=== PATIENT | female | born 1950 | race Hispanic/Latino ===

== ENCOUNTER 2018-09-01 08:01 | Observation (INO) | payer MEDICARE ==
[~2018-09-01] VITALS: Ht 14.5 cm; Wt 104.8 kg
[2018-09-01 08:18] LABS: BASOPHILS % (AUTO) 1.3 % (0.0-5.0); EOSINOPHILS % (AUTO) 3.4 % (0.0-8.0); HEMATOCRIT 43.2 % (36-48); LYMPHOCYTES % (AUTO) 33.1 % (21.0-51.0); MEAN CORPUSCULAR HEMOGLOBIN 30.1 pg (27.0-33.0); MEAN CORPUSCULAR HGB CONC 33.6 g/dL (32.0-36.0); MEAN CORPUSCULAR VOLUME 89.5 fL (79-99); MONOCYTES % (AUTO) 7.5 % (3.0-13.0); NEUTROPHILS % (AUTO) 54.7 % (40.0-77.0); PLATELET COUNT (AUTO) 210 K/uL (130-400); RED BLOOD CELL COUNT(AUTO) 4.83 MIL/uL (4.00-5.50); RED CELL DISTRIBUTION WIDTH 13.9 % (11.0-15.5)
[2018-09-01] MEDS ORDERED: ASPIRIN 325 MG TABLET ONE (08:20)
[2018-09-01] MEDS ORDERED: NITROGLYCERIN 1GM/1 INCH PACKET TD ONE (08:20)
[2018-09-01 08:29] LABS: CREATININE 0.8 mg/dL (0.5-1.5)
[2018-09-01 08:35] LABS: ALBUMIN 4.2 g/dL (3.5-5.0); BILIRUBIN,TOTAL 0.6 mg/dL (0.2-1.0); TOTAL PROTEIN, SERUM 7.7 g/dL (6.0-8.3)
[2018-09-01 08:36] LABS: INR 0.92 (0.85-1.15); PARTIAL THROMBOPLASTIN TIME 30.7 SEC (26.3-35.5); PROTHROMBIN TIME 9.7 SEC (9.6-11.6)
[2018-09-01] MEDS ORDERED: ACETAMINOPHEN EXTRA STRENGTH 500 MG TABLET ONE (09:10)
[2018-09-01] MEDS: SODIUM CHLORIDE 0.9% 1000ML 1,000 ML IV SCH ×2 (09:25→21:34)
[2018-09-01] MEDS ORDERED: ZOLPIDEM TARTRATE 5 MG TAB PO PRN (09:30)
[2018-09-01] MEDS ORDERED: MORPHINE SULFATE 2 MG/ML 1ML SYG IV PRN (09:30)
[2018-09-01] MEDS ORDERED: ONDANSETRON HCL 4 MG/2 ML VIAL IV PRN (09:30)
[2018-09-01] MEDS ORDERED: ACETAMINOPHEN 325 MG TAB PO PRN ×2 (09:30)
[2018-09-01] MEDS ORDERED: HYDRALAZINE HCL 20 MG/ML VIAL IV PRN (09:30)
[2018-09-01] MEDS ORDERED: SODIUM CHLORIDE 0.9% 1000ML 1,000 ML IV ONE (10:01)
[2018-09-01 10:10] LABS: HEMOGLOBIN A1C 5.4 % (4.0-6.0)
[2018-09-01 10:58] LABS: CREATINE KINASE, TOTAL 113 U/L (21-232)
[2018-09-01 11:16] LABS: MYOGLOBIN 43 ng/mL (10-92)
[2018-09-01 12:10] VITALS: BP 144/83
[2018-09-01 16:00] VITALS: BP 130/54
[2018-09-01 16:34] LABS: CREATINE KINASE, TOTAL 86 U/L (21-232); MYOGLOBIN 40 ng/mL (10-92); TROPONIN I < 0.04 ng/mL (0.00-0.06)
[2018-09-01] MEDS: NITROGLYCERIN 1GM/1 INCH PACKET TD SCH (17:25)
[2018-09-01] MEDS ORDERED: BRIM5DRO OP (19:23)
[2018-09-01] MEDS ORDERED: LEVO125T11 PO (19:23)
[2018-09-01] MEDS ORDERED: TRAV2.5D OD (19:23)
[2018-09-01] MEDS ORDERED: ASPI-555 PO (19:23)
[2018-09-01 20:00] VITALS: BP 105/54
[2018-09-01] MEDS: METOPROLOL TARTRATE 25 MG TAB PO SCH (21:00)
[2018-09-01] MEDS: FAMOTIDINE/PF 20 MG/2 ML VIAL IV SCH (21:20)
[2018-09-02] VITALS: BP 110/71
[2018-09-02 00:50] LABS: CREATINE KINASE, TOTAL 79 U/L (21-232); MYOGLOBIN 46 ng/mL (10-92); TROPONIN I < 0.04 ng/mL (0.00-0.06)
[2018-09-02] MEDS: NITROGLYCERIN 1GM/1 INCH PACKET TD SCH ×3 (01:15→15:04)
[2018-09-02 04:00] VITALS: BP 110/59
[2018-09-02] MEDS: SODIUM CHLORIDE 0.9% 1000ML 1,000 ML IV SCH (06:05)
[2018-09-02 07:00] VITALS: BP 121/66
[2018-09-02 08:12] LABS: CREATINE KINASE, TOTAL 79 U/L (21-232); MYOGLOBIN 61 ng/mL (10-92); TROPONIN I < 0.04 ng/mL (0.00-0.06)
[2018-09-02] MEDS: FAMOTIDINE/PF 20 MG/2 ML VIAL IV SCH ×2 (08:47→20:45)
[2018-09-02] MEDS: ENOXAPARIN SODIUM 40 MG/0.4 ML SYRINGE SQ SCH (08:48)
[2018-09-02] MEDS: ASPIRIN 325 MG TABLET PO SCH (08:48)
[2018-09-02] MEDS: METOPROLOL TARTRATE 25 MG TAB PO SCH ×2 (08:48→21:00)
[2018-09-02 11:00] VITALS: BP 109/63
[2018-09-02 20:00] VITALS: BP 122/64
[2018-09-02 23:57] VITALS: BP 118/69
[2018-09-03] MEDS: NITROGLYCERIN 1GM/1 INCH PACKET TD SCH ×2 (01:30→08:13)
[2018-09-03 04:00] VITALS: BP 131/59
[2018-09-03 07:00] VITALS: BP 144/73
[2018-09-03] MEDS: ENOXAPARIN SODIUM 40 MG/0.4 ML SYRINGE SQ SCH (08:56)
[2018-09-03] MEDS: FAMOTIDINE/PF 20 MG/2 ML VIAL IV SCH (08:56)
[2018-09-03] MEDS: ASPIRIN 325 MG TABLET PO SCH (08:56)
== END 2018-09-03 11:30 | disposition home or self-care (01) ==
LOC: EDH 08:01 → EDHIP 09:25 → 3DH 11:51
PROVIDERS: ADMIT Internal Medicine; ATTEND Internal Medicine
DX: I45.10 Unspecified right bundle-branch block (principal); R07.89 Other chest pain; E03.9 Hypothyroidism, unspecified; E78.5 Hyperlipidemia, unspecified; E66.9 Obesity, unspecified; I10 Essential (primary) hypertension; F10.10 Alcohol abuse, uncomplicated; Z87.891 Personal history of nicotine dependence; Z82.49 Family history of ischemic heart disease and other diseases of the circulatory system; Z90.710 Acquired absence of both cervix and uterus
CPT/HCPCS: 36415 ×2; 71046; 80053; 82550 ×4; 83036; 83874 ×4; 84484 ×4; 85025; 85610; 85730; 93005 ×4; 93306; 96372; 96374; 96376; 99291; G0378 ×50; J1650; J3490 ×4; J7030 ×2

== ENCOUNTER → 2018-09-22 | Outpatient (CLI) | payer OTHER ==
[~2018-09-22] MED LIST: ASPI-555 PO; BRIM5DRO OP; LEVO125T11 PO; TRAV2.5D OD
== END | disposition home or self-care (01) ==
LOC: RAH 14:44
PROVIDERS: ATTEND Internal Medicine Cardiovascular Disease
DX: Z13.6 Encounter for screening for cardiovascular disorders (principal)
CPT/HCPCS: 75571

== ENCOUNTER → 2019-11-09 | Outpatient (CLI) | payer MEDICARE | END | disposition home or self-care (01) | LOC: RAH 10:23 | PROVIDERS: ATTEND Internal Medicine | DX: Z12.31 Encounter for screening mammogram for malignant neoplasm of breast (principal) | CPT/HCPCS: 77067 ==

== ENCOUNTER → 2020-08-26 | Outpatient (CLI) | payer MEDICARE ==
[~2020-08-26] MED LIST changes: -ASPI-555 PO; +ASPI-556 PO
[2020-08-26 14:21] LABS: CREATININE 0.9 mg/dL (0.5-1.5)
== END | disposition home or self-care (01) ==
LOC: LAB 06:50
PROVIDERS: ATTEND Internal Medicine Gastroenterology
DX: R10.32 Left lower quadrant pain (principal)
CPT/HCPCS: 36415; 82565; 84520

== ENCOUNTER → 2020-09-15 | Outpatient (CLI) | payer MEDICARE ==
[~2020-09-15] MED LIST changes: +IOHEXOL 350 MG/ML 100ML INFUS..BTL IV ONE
== END | disposition home or self-care (01) ==
LOC: RAH 10:00
PROVIDERS: ATTEND Internal Medicine Gastroenterology
DX: K57.30 Diverticulosis of large intestine without perforation or abscess without bleeding (principal); R10.32 Left lower quadrant pain; I87.8 Other specified disorders of veins; M43.8X6 Other specified deforming dorsopathies, lumbar region; M43.16 Spondylolisthesis, lumbar region; M47.816 Spondylosis without myelopathy or radiculopathy, lumbar region; Z90.710 Acquired absence of both cervix and uterus
CPT/HCPCS: 74178; Q9967

== ENCOUNTER → 2023-03-08 | Outpatient (CLI) | payer OTHER ==
[~2023-03-08] MED LIST changes: -IOHEXOL 350 MG/ML 100ML INFUS..BTL IV ONE; +IOHEXOL-350 50ML VIAL IV ONE
== END | disposition home or self-care (01) ==
LOC: RAH 13:50
PROVIDERS: ATTEND Internal Medicine
DX: R20.2 Paresthesia of skin (principal); E66.9 Obesity, unspecified; E78.5 Hyperlipidemia, unspecified; F17.200 Nicotine dependence, unspecified, uncomplicated
CPT/HCPCS: 93306; 70470; Q9967

== ENCOUNTER → 2023-03-15 | Outpatient (CLI) | payer OTHER ==
[~2023-03-15] MED LIST changes: -IOHEXOL-350 50ML VIAL IV ONE
== END | disposition home or self-care (01) ==
LOC: RAH 13:45
PROVIDERS: ATTEND Internal Medicine
DX: R29.810 Facial weakness (principal); R20.2 Paresthesia of skin
CPT/HCPCS: 93880

== ENCOUNTER → 2024-03-20 | Outpatient (CLI) | payer OTHER | END | disposition home or self-care (01) | LOC: RAH 08:42 | PROVIDERS: ATTEND Internal Medicine | DX: Z78.0 Asymptomatic menopausal state (principal) | CPT/HCPCS: 77080 ==

== ENCOUNTER 2025-03-16 20:17 | Emergency (ER) | payer OTHER ==
[~2025-03-16] VITALS: Ht 170.2 cm; Wt 101.6 kg
--- NOTE | 2025-03-16 20:17 | NUR ---
PT BROUGHT IN FROM TRIAGE WITH C-COLLAR IN PLACE
--- NOTE | 2025-03-16 20:25 | NUR ---
ICE PACK APPLIED TO RIGHT SIDE OF FACE
--- NOTE | 2025-03-16 21:34 | HMCIMG ---
Exam Type: CT HEAD/BRAIN W/O CONTRAST Clinical Information: facial trauma Comparison: None CT Dose Index (CTDI): 57.33 mGy Dose Length Product (DLP): 956.79 total mGy-cm Findings: The examination is unremarkable. Sinclair-white matter junction is preserved. No intra or extra axial lesions or fluid collections are seen. Specifically, sinclair and white matter are normal in signal characteristics with normal caliber of ventricles and periventricular cisterns with no evidence of intra or or extra-axial hemorrhage, lacunar infarct, or major territorial infarct, mass, or other abnormality. There are no infarcts. There are no hemorrhages. Periventricular white matter locations are preserved. The orbital contents and structures of the posterior fossa are intact. Impression: Normal CT of the head. This study was performed using dose reduction techniques to include automated exposure control and/or adjustment of the mA and/or kV according to patient size.
--- NOTE | 2025-03-16 21:36 | HMCIMG ---
Exam Type: CT cervical spine without contrast Clinical Information: facial trauma Comparison: None Technique: Spiral axial images were performed from the base of the skull down to the thoracic vertebral bodies. Both sagittal and coronal reconstructions were performed. CT Dose Index (CTDI): 12.85 mGy Dose Length Product (DLP): 282.6 total Findings: There is normal alignment of the vertebral bodies. There are no fractures. No facet hypertrophy. The prevertebral soft tissues are normal. IMPRESSION: NORMAL CERVICAL SPINE CT. This study was performed using dose reduction techniques to include automated exposure control and/or adjustment of the mA and/or kV according to patient size.
--- NOTE | 2025-03-16 21:39 | HMCIMG ---
CT MAXILLOFACIAL W/O CONTRAST Indication: facial trauma Technique: Multiple thin section axial images were performed through the face and paranasal sinuses. Coronal reconstructions were performed in soft tissue and bone windows, as well as sagittal reconstructions. CT Dose Index (CTDI): 22.11 mGy Dose Length Product (DLP): 450.8 total mGy Findings: Paranasal sinuses are unremarkable. There is no evidence of facial fracture. Right cheek and preseptal hematoma is seen. The eye globes are intact and there is no intraorbital or post septal involvement. Visualized intracranial contents are unremarkable. Impression: Right cheek and preseptal hematoma is seen. The eye globes are intact and there is no intraorbital or post septal involvement. This study was performed using dose reduction techniques to include automated exposure control and/or adjustment of the mA and/or kV according to patient size.
--- NOTE | 2025-03-16 22:47 | ERN ---
General Chief Complaint: Other Problems Stated Complaint: FACIAL TRAUMA Time Seen by MD: 20:19 Time Seen by Midlevel: 20:19 Source: patient History of Present Illness Initial Comments The patient is a 74-year-old female presenting to the emergency department for evaluation of right-sided facial swelling and pain. Patient states she was cutting a tree when the branch hit the right side of her face. She denies loss of consciousness but reports significant amount of swelling to the area so she decided to report to the ER for further evaluation. Allergies: Coded Allergies: No Known Allergies (Verified Allergy, Unknown, 09/01/18) Home Meds Reported Medications Aspirin (Aspir 81) 81 Mg Tablet.dr, 81 MG PO DAILY, TAB 09/01/18 Travoprost (Travatan-Z 0.004%) 20 Drop/Ml Opsol, 20 DROP OD HS, DROP 09/01/18 Brimonidine Tartrate/Timolol (Combigan Eye Drops) 5 Ml Drops, 5 ML OP BID, DROP 09/01/18 Levothyroxine Sodium (Levothyroxine Sodium) 125 Mcg Tablet, 125 MCG PO DAILY, TAB 09/01/18 Past Medical History Past Medical History: Other Medical History Other: THYROID Past Surgical History: Appendectomy, Hysterectomy, Other Surgical History Other: BILATERAL KNEES, BILATERAL HANDS ROS Dictation CONSTITUTIONAL: Negative except for HPI HEAD/FACE: Negative except for HPI EENT: Negative except for HPI RESPIRATORY: Negative except for HPI GASTROINTESTINAL/ABDOMINAL: Negative except for HPI GENITOURINARY: Negative except for HPI MUSCULOSKELETAL: Negative except for HPI INTEGUMENTARY: Negative except for HPI NEUROLOGICAL/PSYCH: Negative except for HPI HEMATOLOGIC/LYMPHATIC: Negative except for HPI All Systems Negative, Except as noted above. 13 point review of systems assessed and all negative except for above. Physical Exam Physical Exam Dictation Vital Signs reviewed General Appearance: Alert, oriented x 3, no acute distress, well developed, nourished. Head and Face: Swelling and tenderness over the right maxillary region, Eyes: PERRL, pink conjunctivas, eyelid no trauma, anterior chamber with arcus senilis. Ears: Pinnas intact and no signs of trauma or erythema ear canals clear and no discharge TM no erythema Nose: No discharge, no bleeding. Oropharynx: Mouth normal, tongue pink, pharynx clear,no erythema, tonsils no exudates, no abscesses noted, mucous membrane moist Neck: Supple, non-tender, no thyromegaly, no masses, no JVD, no bruits Breast:Deferred Chest:No tenderness, no crepitus, no paradoxical movement, no retractions Lungs:Clear, well-ventilated, symmetric, no rales, no wheezing, no rhonchi, no stridor, good breath sounds bilaterally Heart: Regular rate, regular rhythm, no murmur, no gallops Vascular: no peripheral edema, Abdomen: Soft, positive bowel sounds, nondistended, no guarding, nontender, no rebound, no masses no hepatomegaly, no splenomegaly, no Gardner's sign, no hernias. Rectal: Deferred Genital: Deferred Neurological: Normal speech, motor function intact, sensory function intact Musculoskeletal: Neck nontender, full range of motion, back nontender, full range of motion, Extremities: nontender, full range of motion Skin: Color pink, dry, no turgor, no rash, no lacerations, no abrasions, no contusions. Lymphatic: Deferred MDM MDM: 74-year-old female presents to the ER with facial trauma after she had a branch hit the right side of her face. Denies loss of consciousness. On physical examination she has swelling to the right maxillofacial region along with a right periorbital swelling. Patient has extra ocular movements intact pupils are equal round and reactive to light.. A CT scan of the head/maxillofacial/C-spine was obtained. Maxillofacial CT reveals a preseptal hematoma. There is moderate amount of swelling and the patient was given the option to stay in the hospital for overnight observation however she refused so would like to be discharged home. Differential diagnosis: Orbital floor fracture, facial fracture, intracranial bleed, skull fracture There are no social concerns with this patient. Prescription drug management Prescriptions will include: Tylenol Motrin Medical management and examination interpretation discussions were had by me with other qualified healthcare professionals as indicated for the patient's care. ED Course Orders Procedure Category Date Status Time Ct Head/Brain W/O CT 03/16/25 Resulted Contrast 20:30 Ct Cervical Spine W/O CT 03/16/25 Resulted Contrast 20:30 Ct Maxillofacial W/O CT 03/16/25 Resulted Contrast 20:30 Morphine 2mg Syg PHA 03/16/25 Complete (Morphine 2mg Syg) 23:00 Current Medications Medications (Trade) Dose Ordered Sig/Woody Route PRN Reason Start Time Stop Time Status Last Admin Dose Admin Morphine Sulfate (morPHINE 2MG SYG) 2 mg ONCE ONCE IM 03/16/25 23:00 03/16/25 23:01 DC 03/16/25 23:05 Vital Signs Date Time Temp Pulse Resp B/P (MAP) Pulse Ox O2 Delivery O2 Flow Rate FiO2 03/16/25 23:30 98.2 81 18 158/74 97 Room Air* 0 03/16/25 22:26 98.4 82 20 159/68 98 Room Air* 0 03/16/25 21: 98.6 80 19 169/72 99 Room Air* 0 03/16/25 20:29 98.4 77 18 178/69 98 Room Air* 0 03/16/25 20:19 98.1 80 20 198/101 95 Room Air [address] [id number] IMAGING REPORT Signed PATIENT: BAKARI NUÑEZ MR#: [id number] : 1950 SEX: F AGE: 74 LOCATION: ED ORDER 30 STATUS: [facility] REPORT#: [id number] SERVICE 29 REASON: facial trauma ORDERING PHYSICIAN: IVELISSE GREGORIO PROCEDURE: [employer] WO - CT MAXILLOFACIAL W/O CONTRAST CT MAXILLOFACIAL W/O CONTRAST Indication: facial trauma Technique: Multiple thin section axial images were performed through the face and paranasal sinuses. Coronal reconstructions were performed in soft tissue and bone windows, as well as sagittal reconstructions. CT Dose Index (CTDI): 22.11 mGy Dose Length Product (DLP): 450.8 total mGy Findings: Paranasal sinuses are unremarkable. There is no evidence of facial fracture. Right cheek and preseptal hematoma is seen. The eye globes are intact and there is no intraorbital or post septal involvement. Visualized intracranial contents are unremarkable. Impression: Right cheek and preseptal hematoma is seen. The eye globes are intact and there is no intraorbital or post septal involvement. This study was performed using dose reduction techniques to include automated exposure control and/or adjustment of the mA and/or kV according to patient size. DICTATED BY: KAYCEE SMITH MD DATE: 03/16/252135 ELECTRONICALLY SIGNED BY: KAYCEE SMITH MD DATE: 03/16/252138 DX & DISP Disposition: Discharge Departure Impression: Primary Impression: Traumatic hematoma of face Condition: Stable Referrals: LISSETTE VILLASENOR MD (PCP) I have reviewed the case, and I agree with, Diagnosis and Plan I performed the substantive portion of the visit. I have reviewed and personally made and approve the management plan that is documented in the note by myself or the JOHN PAUL. I acknowledge for responsibility for the patient's management plan. IVELISSE GREGORIO Mar 16, 2025 22:47
[2025-03-16] MEDS: morPHINE 2 MG SYG IM ONE (23:05)
[2025-03-16 23:30] VITALS: BP 158/74; PULSE 81; RESP 18; TEMP 98.3; O2SAT 97
== END 2025-03-16 23:46 | disposition home or self-care (01) ==
LOC: EDH 20:17
DX: S00.83XA Contusion of other part of head, initial encounter (principal); Z79.82 Long term (current) use of aspirin; Z79.890 Hormone replacement therapy; Z90.49 Acquired absence of other specified parts of digestive tract; Z90.710 Acquired absence of both cervix and uterus; W22.8XXA Striking against or struck by other objects, initial encounter; Y93.89 Activity, other specified; Y92.89 Other specified places as the place of occurrence of the external cause; Y99.8 Other external cause status
CPT/HCPCS: 99285; 70450; 72125; 70486; 96372; J2270